=== PATIENT | female | born 1930 | race Caucasian/White ===

== ENCOUNTER → 2016-03-01 | Outpatient (CLI) | payer MEDICARE ==
[~2016-03-01] MED LIST: ALMACONE 360 M360 ML PO; ASPI325T6 PO; CARDIZEM CD 12120 MG PO; CEFTIN500 MG PO; CEPHALEXIN500 M1 PO; CORDARONE200 MG/TAB PO; DULCOLAX S10 MG/SUPP RC; ELIQUIS 2.5 PO; FERROUS SU325 MG/TAB PO; LASIX 20MG TABL20 MG PO; MILK OF MA400 MG/52 PO; MIRTAZAPINE7.5 MG PO; MULTAQ400 MG PO; MULTIPLE VITAMI1 TAB PO; NORCO 325 MG-7.1 TAB PO; NORCO2.5 PO; PYRIDIUM 100MG100 MG PO; TYLENOL 325MG325 MG PO; TYLENOL SU650 MG/SUP RC
[2016-03-01 21:31] LABS: CALCIUM 9.3 mg/dL (8.4-10.2); CREATININE, serum 1.16 mg/dL (0.52-1.25); POTASSIUM 3.9 mmol/L (3.4-5.0)
== END ==
LOC: ZCOL.LAB 21:12
PROVIDERS: Internal Medicine
DX: R60.0 Localized edema (principal)

== ENCOUNTER → 2017-03-04 | Outpatient (CLI) | payer MEDICARE ==
[2017-03-04 21:33] LABS: COLLECTION METHOD CLEAN CATCH
[2017-03-04 21:43] LABS: MUCOUS Present /lpf; PH 7 (5-8); URINE APPEARANCE Cloudy; URINE BACTERIA Rare /hpf; URINE BILIRUBIN Negative (NEGATIVE); URINE BLOOD Negative (NEGATIVE); URINE CALCIUM OXALATE CRYSTAL Present /hpf; URINE COLOR Yellow; URINE GLUCOSE Negative (NEGATIVE); URINE KETONE Negative (NEGATIVE); URINE LEUKOCYTE ESTERASE 3+ (NEGATIVE); URINE NITRATE Negative (NEGATIVE); URINE PROTEIN(semi-quant) Negative (NEGATIVE); URINE UROBILINOGEN Negative (NEGATIVE); URINE WBC >50 /hpf
== END ==
LOC: ZCOL.LAB 20:48
PROVIDERS: Internal Medicine
DX: Z01.89 Encounter for other specified special examinations (principal)

== ENCOUNTER → 2017-08-02 | Outpatient (CLI) | payer MEDICARE | LOC: ZCOL.LAB 15:14 | DX: S61.401A Unspecified open wound of right hand, initial encounter (principal) ==

== ENCOUNTER 2017-09-24 14:00 | Inpatient (IN) | payer MEDICARE ==
[~2017-09-24] VITALS: Ht 162.6 cm; Wt 33.2 kg
[2017-09-24 15:56] LABS: COLLECTION METHOD CATHETER
[2017-09-24 15:56] LABS: BASO % 0.3 % (0.0-2.0); EOS % 0.4 % (0-4.0); GRAN # 7.9 (1.4-6.5); GRAN % 84.7 % (42.2-75.2); HEMATOCRIT 37.7 % (37.0-47.0); HEMOGLOBIN 12.6 g/dl (12.5-16.0); LYMPH # 0.6 (1.2-3.4); LYMPH % 6.6 % (20.0-51.0); MEAN CELL VOLUME 103 fl (80.0-100.0); MEAN CORPUSCULAR HEMOGLOBIN 35 pg (27.0-31.0); MEAN CORPUSCULAR HGB CONC 33 g/dl (33.0-37.0); MEAN PLATELET VOLUME 8.9 fl (7.4-10.4); MONO # 0.7 (0.1-0.6); MONO % 7.6 % (1.7-9.3); PLATELET COUNT 223 K/mm3 (130-400); RED BLOOD COUNT 3.65 M/mm3 (4.10-5.30); REDCELL DISTRIBUTION WIDTH-CV 12.6 % (11.5-14.5)
[2017-09-24 16:07] LABS: ALBUMIN 3.9 gm/dL (3.5-5.0); BILIRUBIN,TOTAL 0.9 mg/dL (0.0-1.0); CALCIUM 8.7 mg/dL (8.4-10.2); CREATININE, serum 1.12 mg/dL (0.52-1.25); POTASSIUM 3.4 mmol/L (3.4-5.0); TOTAL PROTEIN 6.6 gm/dL (6.4-8.2)
[2017-09-24 16:08] LABS: BUDDING YEAST Present /hpf; PH 7 (5-8); SQUAMOUS EPITHELIAL None Seen /hpf; URINE APPEARANCE Hazy; URINE BACTERIA None Seen /hpf; URINE BILIRUBIN Negative (NEGATIVE); URINE BLOOD Negative (NEGATIVE); URINE COLOR Yellow; URINE GLUCOSE Negative (NEGATIVE); URINE KETONE Negative (NEGATIVE); URINE LEUKOCYTE ESTERASE 3+ (NEGATIVE); URINE NITRATE Negative (NEGATIVE); URINE PROTEIN(semi-quant) Negative (NEGATIVE); URINE RBC 0-2 /hpf; URINE UROBILINOGEN Negative (NEGATIVE)
[2017-09-24] MEDS ORDERED: ALDACTONE 25MG25 M1 PO (16:10)
[2017-09-24] MEDS ORDERED: PACERONE100 MG PO (16:11)
[2017-09-24] MEDS ORDERED: LASIX 40MG TABL40 MG PO (16:11)
[2017-09-24] MEDS ORDERED: REMERON 15M15 MG/TA1 PO (16:12)
[2017-09-24] MEDS ORDERED: GUAICON DMS PO (16:14)
[2017-09-24] MEDS ORDERED: MILK OF MA400 MG/52 (16:17)
[2017-09-24 17:20] VITALS: BP 115/70; PULSE 106; TEMP 97.4
[2017-09-24 18:12] LABS: PROTHROMBIN TIME 11.9 SECONDS (9.7-12.8)
[2017-09-24] MEDS ORDERED: TYLENOL 500MG500 MG PO (18:47)
[2017-09-24] MEDS ORDERED: ASPIRIN 81M81 MG/TA2 PO (18:53)
[2017-09-24 20:12] VITALS: BP 112/43; PULSE 87; TEMP 97.8
[2017-09-24 23:41] VITALS: BP 141/51; PULSE 75; TEMP 97.8
[2017-09-25] VITALS (11 sets, daily range): BP systolic 94–149; BP diastolic 43–96; PULSE 50–84; TEMP 97.4–998.1
[2017-09-25 06:24] LABS: CALCIUM 8.7 mg/dL (8.4-10.2); POTASSIUM 3.7 mmol/L (3.4-5.0)
[2017-09-26] VITALS (8 sets, daily range): BP systolic 86–139; BP diastolic 40–98; PULSE 74–85; TEMP 97.9–100.1
[2017-09-26 06:32] LABS: BASO % 0.3 % (0.0-2.0); GRAN # 7.8 (1.4-6.5); GRAN % 81.4 % (42.2-75.2); LYMPH # 0.5 (1.2-3.4); LYMPH % 5.4 % (20.0-51.0); MEAN CELL VOLUME 105 fl (80.0-100.0); MEAN CORPUSCULAR HGB CONC 33 g/dl (33.0-37.0); MEAN PLATELET VOLUME 9.4 fl (7.4-10.4); MONO # 1.2 (0.1-0.6); MONO % 12.4 % (1.7-9.3); PLATELET COUNT 153 K/mm3 (130-400); REDCELL DISTRIBUTION WIDTH-CV 12.7 % (11.5-14.5)
[2017-09-26 06:40] LABS: CALCIUM 8.5 mg/dL (8.4-10.2); CREATININE, serum 0.79 mg/dL (0.52-1.25); POTASSIUM 4.2 mmol/L (3.4-5.0)
[2017-09-26 06:42] LABS: HEMATOCRIT 27.3 % (37.0-47.0); MEAN CORPUSCULAR HEMOGLOBIN 35 pg (27.0-31.0)
[2017-09-26 14:47] LABS: HEMATOCRIT 26.4 % (37.0-47.0); HEMOGLOBIN 8.6 g/dl (12.5-16.0)
[2017-09-27 04:00] VITALS: BP 134/86; PULSE 86; TEMP 97.4
[2017-09-27 07:26] LABS: BASO % 0.3 % (0.0-2.0); EOS % 0.5 % (0-4.0); GRAN # 7.3 (1.4-6.5); GRAN % 84.1 % (42.2-75.2); HEMATOCRIT 24.4 % (37.0-47.0); HEMOGLOBIN 8.1 g/dl (12.5-16.0); LYMPH # 0.5 (1.2-3.4); LYMPH % 5.7 % (20.0-51.0); MEAN CELL VOLUME 106 fl (80.0-100.0); MEAN CORPUSCULAR HEMOGLOBIN 35 pg (27.0-31.0); MEAN CORPUSCULAR HGB CONC 33 g/dl (33.0-37.0); MEAN PLATELET VOLUME 9.5 fl (7.4-10.4); MONO # 0.8 (0.1-0.6); MONO % 8.9 % (1.7-9.3); PLATELET COUNT 137 K/mm3 (130-400); RED BLOOD COUNT 2.31 M/mm3 (4.10-5.30); REDCELL DISTRIBUTION WIDTH-CV 12.6 % (11.5-14.5)
[2017-09-27 07:37] LABS: CALCIUM 8.4 mg/dL (8.4-10.2); CREATININE, serum 0.79 mg/dL (0.52-1.25); POTASSIUM 3.7 mmol/L (3.4-5.0)
[2017-09-27 08:54] VITALS: BP 117/66; PULSE 80; TEMP 98.1
[2017-09-27 12:10] VITALS: BP 103/50; PULSE 77; TEMP 97.8
[2017-09-27 16:43] VITALS: BP 109/64; PULSE 76; TEMP 98
[2017-09-27 19:22] VITALS: BP 96/46; PULSE 78; TEMP 98.1
[2017-09-27 23:59] VITALS: BP 110/65; PULSE 85; TEMP 98.6
[2017-09-28 04:04] VITALS: BP 98/54; PULSE 56; TEMP 98.6
[2017-09-28 07:27] LABS: HEMATOCRIT 26.9 % (37.0-47.0); HEMOGLOBIN 8.7 g/dl (12.5-16.0)
[2017-09-28 08:00] VITALS: BP 123/56; PULSE 76; TEMP 97.7
[2017-09-28] MEDS ORDERED: AMOXICILLIN/CLA1 TA1 PO (08:53)
[2017-09-28] MEDS ORDERED: ASPIRIN 32325 MG/TA1 PO (08:53)
[2017-09-28 10:55] VITALS: BP 123/56; PULSE 76; TEMP 97.7
== END 2017-09-28 12:12 | DRG 480 ==
LOC: COL.ER 14:00 → SURG 15:04
PROVIDERS: Family Medicine; Orthopaedic Surgery
PROC: 0QS706Z Reposition Left Upper Femur with Intramedullary Internal Fixation Device, Open Approach (ICD-10-PCS; principal; 2017-09-25 15:30)
DX: M80.052A Age-related osteoporosis with current pathological fracture, left femur, initial encounter for fracture (principal); E43 Unspecified severe protein-calorie malnutrition; Z68.1 Body mass index [BMI] 19.9 or less, adult; D62 Acute posthemorrhagic anemia; N39.0 Urinary tract infection, site not specified; F05 Delirium due to known physiological condition; F02.81 Dementia in other diseases classified elsewhere, unspecified severity, with behavioral disturbance; Z66 Do not resuscitate; W18.30XA Fall on same level, unspecified, initial encounter; I12.9 Hypertensive chronic kidney disease with stage 1 through stage 4 chronic kidney disease, or unspecified chronic kidney disease; N18.3 Chronic kidney disease, stage 3 (moderate); I48.91 Unspecified atrial fibrillation; B96.4 Proteus (mirabilis) (morganii) as the cause of diseases classified elsewhere; L89.151 Pressure ulcer of sacral region, stage 1; G30.1 Alzheimer's disease with late onset
CPT/HCPCS: A9284; C1713; J0690; J0696; J2250; J2270; J2405; J2704; J2795; J3010; J7120

== ENCOUNTER → 2018-11-16 | Outpatient (CLI) | payer MEDICARE ==
[~2018-11-16] MED LIST changes: +ALDACTONE 25MG25 M1 PO; +AMOXICILLIN/CLA1 TA1 PO; +ASPIRIN 32325 MG/TA1 PO; +ASPIRIN 81M81 MG/TA2 PO; +GUAICON DMS PO; +LASIX 40MG TABL40 MG PO; +MILK OF MA400 MG/52; +PACERONE100 MG PO; +REMERON 15M15 MG/TA1 PO; +TYLENOL 500MG500 MG PO
[2018-11-16 15:44] LABS: BASO # 0.1 (0.0-0.2); BASO % 0.8 % (0.0-2.0); EOS # 0.2 (0.0-0.7); EOS % 1.9 % (0-4.0); GRAN # 6.2 (1.4-6.5); GRAN % 72.5 % (42.2-75.2); HEMATOCRIT 47.1 % (37.0-47.0); LYMPH # 1.3 (1.2-3.4); LYMPH % 15.2 % (20.0-51.0); MEAN CELL VOLUME 104 fl (80.0-100.0); MEAN CORPUSCULAR HEMOGLOBIN 33 pg (27.0-31.0); MEAN CORPUSCULAR HGB CONC 32 g/dl (33.0-37.0); MEAN PLATELET VOLUME 9.7 fl (7.4-10.4); MONO # 0.8 (0.1-0.6); MONO % 8.8 % (1.7-9.3); PLATELET COUNT 264 K/mm3 (130-400); RED BLOOD COUNT 4.51 M/mm3 (4.10-5.30); REDCELL DISTRIBUTION WIDTH-CV 13.2 % (11.5-14.5)
[2018-11-16 16:19] LABS: ALBUMIN 4.2 gm/dL (3.5-5.0); BILIRUBIN,TOTAL 0.7 mg/dL (0.0-1.0); CALCIUM 9.4 mg/dL (8.4-10.2); CREATININE, serum 1.21 (0.52-1.25); POTASSIUM 4.2 mmol/L (3.4-5.0)
== END ==
LOC: ZCOL.LAB 15:38
PROVIDERS: Nurse Practitioner Family
DX: R55 Syncope and collapse (principal)

== ENCOUNTER → 2019-08-26 | Outpatient (CLI) | payer MEDICARE | LOC: ZCOL.LAB 14:15 | DX: R50.81 Fever presenting with conditions classified elsewhere (principal); Z20.828 Contact with and (suspected) exposure to other viral communicable diseases ==